=== PATIENT | female | born 1965 | race Caucasian/White ===

== ENCOUNTER → 2016-10-09 | Outpatient (CLI) | payer BC ==
[~2016-10-09] MED LIST: ASPIRIN325 M1 PO; BAYER CHEWABLE81 MG PO; BYSTOLIC5 MG; CIPRO PO; FIORICET W/CODE1 CAP PO; FLOMAX0.4 M1 PO; HCTZ; LISINOPRIL-HCTZ1 T21; PERCOCET 5-3251 TAB PO; PHENERGAN25 M1 PO; PROCARDIA10 MG PO; VASOTEC20 MG
--- NOTE | ~2016-10-09 | MY11 ---
[facility] A Service [facility] RADIOLOGY TEXT RESULTS PATIENT: TONE RAM LOCATION: [facility] : 61 UNIT #: [id number] AGE: [address]: April Collins MD SEX: F ORDER DR: [id number] [place] [id number] O MR#: [id number] Acc #: [id number] NAME: TONE RAM : 1965 SEX: F STUDY DATE/TIME: 10/09/2016 8:57 UNIT: [facility] ROOM: STUDY DESCRIPTION: MY Mammogram Screening Dig Tanner Attending Physician: April Collins M.D. Referring Physician: April Collins M.D. Ordering Physician: April Collins M.D. Primary Care Physician: April Collins M.D. MEDICAL IMAGING REPORT This report is preliminary unless electronic signature is present. EXAM Digital screening mammogram with CAD. INDICATIONS Routine screening. PROCEDURE Bilateral CC and MLO views obtained on a digital mammography unit. FDA-approved CAD device utilized. COMPARISON 01/23/2014 performed at [facility]. FINDINGS Scattered fibroglandular density. No dominant mass or suspicious calcification. IMPRESSION Negative screening mammogram. Screening interval of 1 year suggested Patients over the age of 40 are entered into a reminder system with target due date for the next mammogram. A result letter will also be sent to the patient. BIRADS: 1 Negative Dictated by... Felton Ward M.D. THIS IS AN ELECTRONICALLY VERIFIED REPORT Felton Ward M.D. at 10/17/2016 7:09 AM [facility] A Service [facility] RADIOLOGY TEXT RESULTS PATIENT: TONE RAM LOCATION: [facility] : 61 UNIT #: [id number] AGE: [address]: April Collins MD SEX: F ORDER DR: Jessica TD: 10/16/2016 18:28 JOB #: [id number] MEDICAL IMAGING REPORT Page 1 of 1
== END | disposition home or self-care (01) ==
LOC: SMAM 08:13
DX: Z12.31 Encounter for screening mammogram for malignant neoplasm of breast (principal)
CPT/HCPCS: G0202